=== PATIENT | male | born 1960 | race Caucasian/White ===

== ENCOUNTER → 2017-09-01 | Outpatient (CLI) | payer OTHER ==
[2017-08-31 09:47] VITALS: BMI 25.7
[2017-09-01 13:18] VITALS: PULSE 108; RESP 16
[2017-09-01 14:04] VITALS: BP 169/107
--- NOTE | 2017-09-02 20:03 | P.CONS ---
History of Present Illness - Reason for Consult Consult date: 09/01/17 - History of Present Illness This is 57 years old male with a chronic history of severe low back pain and bilateral hip pain, patient had lumbar laminectomy surgery 2, and he continued to have severe low back pain after the surgery, also patient complaining of severe neck pain with radiation to the right upper extremity, associated with numbness and tingling sensation, also patient complaining of mid back pain, and this increases with any activity, patient continued to walk and function, but the pain intensity interfering with his quality of life, the intensity of the pain at 6/10 increases with any activity to 8/10, he had the caudal epidural steroid injections with loss of epidural adhesions and he had good pain relief from it, and also he had bilateral trochanteric bursa steroid injection which helped his hip pain , currently patient reported that most of the pain is in the hip area, and the intensity of the pain in the hip interfering with his ability to move or functional, he denies any fever or night sweats. He denies any change in the bowel movement or urination he denies any motor or sensory deficit Past Medical History Past Medical History: GERD/Reflux, Hearing Disorder / Deafness, Hyperlipidemia, Musculoskeletal Disorder Additional Past Medical History / Comment(s): HX OCC GERD. TINNITUS. BORDERLINE HIGH CHOLESTEROL. CERVICAL/THORACIC/LUMBAR PAIN; RT SHOULDER, SAMIRA HIPS, LT KNEE PAIN. OCC EDEMA ANKLES. History of Any Multi-Drug Resistant Organisms: None Reported Past Surgical History: Back Surgery Additional Past Surgical History / Comment(s): LAMINECTOMY X2, 1986, 1988, MULT PAIN PROC SINCE. Past Anesthesia/Blood Transfusion Reactions: No Reported Reaction Past Psychological History: Anxiety Additional Psychological History / Comment(s): MILD, OCC Smoking Status: Current every day smoker Past Alcohol Use History: None Reported Additional Past Alcohol Use History / Comment(s): SMOKING SINCE 2007, <1/2 PPD. Past Drug Use History: None Reported - Past Family History Father Family Medical History: Cancer Medications and Allergies Home Medications Medication Instructions Recorded Confirmed Type Aspirin [Adult Low Dose Aspirin EC] 81 mg PO DAILY 08/31/17 09/01/17 History Aspirin/Acetaminophen/Caffeine 1 each PO Q4-6H PRN 08/31/17 09/01/17 History [Excedrin Migraine Caplet] Diazepam [Valium] 5 mg PO BID PRN 08/31/17 09/01/17 History HYDROcodone/APAP 10-325MG [[place] 1 tab PO Q6H PRN 08/31/17 09/01/17 History 10-325] Lidocaine 5% Patch [Lidoderm] 1 patch TOPICAL DAILY PRN 08/31/17 09/01/17 History guaiFENesin [Mucinex] 600 mg PO BID PRN 08/31/17 09/01/17 History Allergies Allergy/AdvReac Type Severity Reaction Status Date / Time azithromycin [From Zithromax] Allergy Nausea & Verified 09/01/17 12:47 Vomiting perfume Allergy Rash/Hives Verified 09/01/17 12:47 Physical Exam Social history : smoker , NO ETOH , NO Illegal drugs use Review of Systems : 1- Constitutional : no chills , no fever , no night sweats , 2- Ears : no ear discharge , no change in hearing 3-Nose, Mouth ,Throat ; no bleeding gums, no sore throat , no epistaxis , 4-Cardiovascular : Denies chest pain, , no orthopnea , no palpitation 5-Respiratory : Denies cough , no dyspnea , no hemoptysis 6-Gastrointestinal :, no change in bowel habits , no coffee- ground emesis . 7-Genitourinary : No hematuria , no discharge , no incontinence, 8-Musculoskeletal : No gait dysfunction , report low back pain , hip pain ,mid back pain ,neck pain , 9- Neurological : no ataxia , no tremor , no sezure , 10-Psychatric , no suicidal ideation no hallucination 11- Endocrine : no cold intolerence , no polyuria , no polydypsia , 12-Hematologic : no easy bleeding , no easy brusing , 13-Allergic / immunology : no angioedema , no wheezing ,no allergic rhinitis 14-Integumentary : no brttle nails , no change hair / nails , no foot/leg ulcers . Physical Examinations : 1-Constitutional : Cooperative , not in acute distress . 2-HEENT : nech ; supple , no Lymphadenopathy , no Thyromegaly , :eyes , no icterus, no photophobia . ENT : , normal oropharynx , no Thrush 3- Respiratory : Chest clear to auscultations Bilaterally , no wheezing . 4- Cardiovascular : regular rate and rhythem , S1 , S2 , no S3 , no S4. 5- Gastrointestinal: abdomen soft no tenderness , no organomegally . 6- Genitourinary : Defferred . 7-Integumentary : No cellulitis , no ulcers , normal skin turgor , no cyanotic . 8- neurologic : Cranial nerve II to XII intact , no focal neurological deffecit 9-psychatric : alert , oriented X 3 , appropriate affect , intact judgment and insight . 10-Lymphatic : no Lymphadenopathy. 11- musculoskeltal: normal gait Cervical Spine motor stregnth in the deltoid and biceps, normal right side , normal Left side motor stregnth biceps and the wrist extensors normal right side ,normal left side . motor stregnth in the triceps muscle . normal Right side , normal Left side deep tendon reflexes normal at the biceps , normal at Brachioradialis , normal at triceps. positive cervical facet loading test . Lumber spine moter stegnth lower extremities ,thigh and legs 5/5 Right side , 5/5 Left side deep tendon reflexes : normal Knee Jerk , normal ankle Jerk positive lumber facet Loading Test Range of motion of the lumbar spine Flexion 30 degrees, extension 10 degrees strait leg raising test , positive at 30 degree Fabere test positive RT and positive LT . Sever tenderness over the trochanteric bursa on the R > L sides Results Comments: MRI of the cervical spine C5 6 and C6 7 osteophyte complex and neural foraminal narrowing MRI of the thoracic spine D78 disc bulging MRI of the lumbar spine= L4 5 disc bulging and facet hypertrophy and right- sided foraminal narrowing Assessment and Plan Assessment: Assessment and plan=1-chronic severe low back pain secondary to failed back surgery syndrome lumbar area and lumbar spondylosis 2-chronic severe head pain mostly secondary to bilateral trochanteric bursitis. 3-chronic neck pain secondary to cervical degenerative disc disease and foraminal stenosis. 4-chronic mid back pain secondary to thoracic degenerative disc disease. Currently most of the pain is in the hip area, and mostly secondary to bilateral trochanteric bursitis patient could benefit from, bilateral Trochanteric bursa steroid injections, under fluoroscopy guidance, procedure risks and benefits and alternatives discussed with the patient he agreed with the procedure , the patient also will be good candidate to have a caudal epidural steroid injection with lysis of epidural adhesions , patient should continue his current medication Neurontin and [place] 10/325 ,he is getting prescriptions from his primary care Time with Patient: Greater than 30
== END | disposition home or self-care (01) ==
LOC: PNWHC3 12:24
PROVIDERS: ATTEND Specialist
DX: G89.28 Other chronic postprocedural pain (principal); M54.5 Low back pain; M99.71 Connective tissue and disc stenosis of intervertebral foramina of cervical region; M50.30 Other cervical disc degeneration, unspecified cervical region; M51.34 Other intervertebral disc degeneration, thoracic region; M70.61 Trochanteric bursitis, right hip; M70.62 Trochanteric bursitis, left hip; M96.1 Postlaminectomy syndrome, not elsewhere classified; M47.816 Spondylosis without myelopathy or radiculopathy, lumbar region; F41.9 Anxiety disorder, unspecified; F17.210 Nicotine dependence, cigarettes, uncomplicated; K21.9 Gastro-esophageal reflux disease without esophagitis; H91.90 Unspecified hearing loss, unspecified ear; E78.5 Hyperlipidemia, unspecified; Z98.890 Other specified postprocedural states; Z79.52 Long term (current) use of systemic steroids; Z79.82 Long term (current) use of aspirin; Z79.891 Long term (current) use of opiate analgesic; Z79.899 Other long term (current) drug therapy; Z88.1 Allergy status to other antibiotic agents
CPT/HCPCS: 99201